=== PATIENT | male | born 1945 | race Hispanic/Latino ===

== ENCOUNTER 2023-09-21 08:26 | Observation (INO) | payer OTHER ==
--- NOTE | 2023-09-18 09:20 | RAD REPORT ---
EXAM DESCRIPTION: RAD - Chest Pa And Lat (2 Views) - 09/18/2023 9:15 am CLINICAL HISTORY: Pre op pending hernia repair COMPARISON: Chest Pa And Lat (2 Views) dated 10/14/2022 FINDINGS: Lines: None. Lungs: No evidence of edema or pneumonia. Pleural: No significant pleural effusions or pneumothorax. Cardiac: The heart size is within normal limits. Mediastinum: Within normal limits. Bones: No acute fractures. Other: None IMPRESSION: No acute cardiopulmonary disease.
[2023-09-18 09:58] LABS: Absolute Lymphocytes (CBC) 1.4 K/uL (0.7-4.9); Hematocrit 39.9 % (39.6-49.0); Lymphocytes % 24.5 % (15.3-44.8); MPV 8.1 fL (7.6-11.3); Platelets 182 thou/uL (152-406); RBC Red Blood Cell Count 4.38 M/uL (4.33-5.43)
--- NOTE | 2023-09-18 14:45 | EKG ---
Test Date: 2023-09-18 Test Time: 10:00:52 [employer]: KESHA MEASUREMENT RESULTS: Intervals: Rate: 61 DE: 150 QRSD: 138 QT: 442 QTc: 444 [place]: P: 49 DE: 150 QRS: -56 T: 66 INTERPRETIVE STATEMENTS: Normal sinus rhythm Right bundle branch block Left anterior fascicular block Bifascicular block Possible Lateral infarct, age undetermined Abnormal ECG No previous ECG available for comparison Electronically Signed On 09-18-23 14:44:23 [employer]EL[employer] ASSISTANT by Eleuterio Gallardo
[2023-09-21] MEDS ORDERED: Ringers Lactate 1,000 ML IV ONE ×2 (08:56→12:08)
[2023-09-21] MEDS ORDERED: CEFAZOLIN SODIUM 1 GM/VIAL ONE (08:56)
[2023-09-21] MEDS ORDERED: LIDOCAINE 1% MPF 5 ML VIAL ONE ×2 (09:50→10:56)
[2023-09-21] MEDS ORDERED: FENTANYL CITR 100 MCG/2 ML ONE (09:50)
[2023-09-21] MEDS ORDERED: propofoL 200 MG/20 ML VIAL IV ONE (09:50)
[2023-09-21] MEDS ORDERED: BUPIVACAINE 0.75% (PF) 2 ML SP ONE (10:08)
[2023-09-21] MEDS ORDERED: EPHEDRINE SULF 50 MG/ML VIAL ONE (11:27)
[2023-09-21] MEDS ORDERED: HYDROMORPHONE HCL 1 MG/ML INJ IV PRN (12:21)
[2023-09-21] MEDS ORDERED: CODEINE 30MG/APAP 300MG TAB PO PRN (12:21)
--- NOTE | 2023-09-21 12:21 | P.BOP ---
Preoperative diagnosis: tender large right inguinal hernia, Parkinson disease, weakness Postoperative diagnosis: same Primary procedure: Open repair of tender large right inguinal hernia with mesh Estimated blood loss: <10cc Specimen: hernia sac Findings: see dicta Anesthesia: Spinal Complications: None Transferred to: Recovery Room Condition: Good
--- OUTSIDE RECORDS SUMMARY | 2023-09-21 14:12 | XMS REPORT | Continuity of Care Document ---
:1945 Author Organization [facility] t Address [address] [place] [address] [address] [place] [address] Care Team Providers Name Role Phone No MD, Pcp Primary Care Physician Unavailable Santiago Reyes Attending Clinician Lorenza Morales PA-C Attending Clinician Unknown, Attending Attending Clinician Unavailable LORENZA MORALES Attending Clinician Unavailable Doctor Unassigned, [place] Attending Clinician Unavailable German Tobias APRN Attending Clinician Brendan Castanon Attending Clinician BRENDAN CASTANON Attending Clinician Unavailable Vaccine, [facility] Family [facility] Attending Clinician Unavailable Percy Rdoriges DO Attending Clinician PERCY RODRIGES Attending Clinician Unavailable Nurse, Jackie Pob Immunization Attending Clinician Unavailable LESTER CORONADO Attending Clinician Unavailable LUIS DANIEL NICK Attending Clinician Unavailable ANTHONY CALHOUN Attending Clinician Unavailable ANTHONY CALHOUN Attending Clinician Unavailable CESARIO GARCIA Attending Clinician Unavailable ANTHONY CALHOUN Admitting Clinician Unavailable LESTER CORONADO Admitting Clinician Unavailable Payers Payer Name Policy Type Policy Number Effective Date Expiration Date S ource MEDICARE PART A [id number] 2010 AND B 00:00:00 Problems Condition Condition Condition Status Onset Resolution Last Treating Co mments Source Name Details Category Date Date Treatment Clinician Date Parkinson' Parkinson' Disease Active U T s disease s disease 12-11 Heal th 00:00: 00 Closed Closed Disease Active Last UT anterior anterior 12-11 Assessmen Tereso lth displaced displaced 00:00: t & Plan: fracture fracture 00 Formattin of sternal of sternal g of this end of end of note right right might be clavicle clavicle different from the original. Patient has full range of motion of the shoulders with no pain. He has been discharge d from physical therapy as we will have him continue with his home exercise program and follow-up as needed. FELL FELL Diagnosis Active 2022-12-08 Mem oria Active 12-08 20:17:00 l 12/08/2022 00:00: Rikki naylor [address] Primary Primary Disease Active 2018-10 Overview: Univ ers osteoarthr osteoarthr 2-03 Formattin ity of itis of itis of 00:00: g of this [place] left knee left knee 00 note Medi devorah might be Branch different from the original. Added automatic ally from request for surgery [id number] Total knee Total knee Disease Active U nivers replacemen replacemen 6-17 it y of t status t status 00:00: [place] 00 Medical Branch Primary Primary Disease Active Overview: Univ ers osteoarthr osteoarthr 5-17 Formattin ity of itis of itis of 00:00: g of this [place] right knee right knee 00 note Me dical might be Branch different from the original. Added automatic ally from request for surgery [id number] Cerebrovas Cerebrova Problem Active 2023-08-08 Memoria cular scular 14:13:25 l accident accident Rikki n (disorder) (disorder) Active Problem 08/08/2023 [facility] Hyperlipid Hyperlipi Problem Active 2023-08-08 Memoria emia demia 14:13:25 l (disorder) (disorder) [facility] Active Problem 08/08/2023 [facility] Hypertensi Hypertens Problem Active 2023-08-08 Memoria ve david 14:13:25 l disorder, disorder, Herm melba systemic systemic arterial arterial (disorder) (disorder) Active Problem 08/08/2023 [facility] Kidney Kidney Problem Active 2023-08-08 Manuel sachin stone stone 14:13:25 l (disorder) (disorder) He rmann Active Problem 08/08/2023 [facility] Parkinsoni Problem Active 2023-08-08 M emoria sm Parkinsoni 14:13:25 l (disorder) sm Rikki n (disorder) Active Problem 08/08/2023 [facility] Tremor Tremor Problem Active 2023-08-08 Manuel sachin (finding) (finding) 14:13:25 l Active Georges Problem 08/08/2023 [facility] Fracture Fracture Problem Active 2023-08-08 Memoria of of 14:13:25 l clavicle clavicle Rikki n (disorder) (disorder) Active Problem 08/08/2023 [facility] [place] Dizziness Dizziness Problem Active 2023-08-08 Memoria (finding) (finding) 14:13:25 l Active [place] Problem 08/08/2023 [facility] [place] Allergies, Adverse Reactions, Alerts Allergy Allergy Status Severity Reaction(s) Onset Inactive Treating Comm ents Source Name Type Date Date Clinician NO KNOWN Drug Active Univers ALLERGIE Class ity of S [facility] Seasonal Seasonal Active Memori a e e l [place] Social History Social Habit Start Date Stop Date Quantity Comments Source History [facility] University o f Alcohol Binge [place] Medic al Branch Gender identity Universit y of [facility] Sexual orientation Univer sity of [facility] Exposure to 2023-02-28 2023-03-10 Not sure [facility] SARS-CoV-2 (event) 00:00:00 13:29:00 Alcohol intake 2021-05-20 2021-05-20 Current drinker Unive rsity of 00:00:00 00:00:00 of alcohol [place] Medical (finding) Branch History of Social 2020-09-17 2020-09-17 Univers ity of function 00:00:00 00:00:00 [place] [facility] History SDOH 2019-03-31 2019-03-31 2 University o f Alcohol Frequency 00:00:00 00:00:00 [facility] edical Branch History SDOH 2019-03-31 2019-03-31 1 University o f Alcohol Std Drinks 00:00:00 00:00:00 [facility] Alcohol Comment 2019-03-31 2019-03-31 Occasional Universit y of 00:00:00 00:00:00 Drinker [facility] Tobacco use and 2017-10-06 2017-10-06 Smokeless tobacco Un iversity of exposure 00:00:00 00:00:00 non-user [facility] Sex Ass[birth year] [facility] 00:00:00 00:00:00 Smoking Status Start Date Stop Date Source Tobacco smoking consumption unknown [facility] Tobacco smoking status [facility] Medications Ordered Filled Start Stop Current Ordering Indication Dosage Frequency Signature Comments Components Source Medication Medication Date Date Medication? Clinician (SIG) Name Name carbidopa-l 2022-10 Yes 1 tab, PO, Memoria evodopa 25 0-18 BID, # 60 l mg-100 mg 19:29: tab, 5 Rikki n oral tablet 00 Refill(s), Pharmacy: [facility], 157.48, cm, 08/05/23 14:06:00 CDT, Height, 68.182, kg, 08/05/23 14:06:00 CDT, Weight molnupiravi 2022-0 Yes [id number] 800mg Take 4 Univers r 200 mg 9-10 capsules ity of capsule 00:00: by mouth [place] 00 every 12 Medical (twelve) Branch hours. carbidopa-l Yes 1{tbl} Take 1 Un taylor evodopa 8-03 tablet by ity of 25-100 mg 00:00: mouth in [facility] s tablet 00 the Medical morning Branch and 1 tablet in the evening. triamterene 2022-0 Yes 1{tbl} Take 1 Un taylor -hydrochlor 7-12 tablet by ity of othiazid 00:00: mouth in [place] 37.5-25 mg 00 the Medical tablet morning. Branch atorvastati Yes 10mg Take 10 mg UT n (Lipitor) 5-23 by mouth. Hea lth 10 MG 13:51: tablet 10 tramadol 50 0 Yes 50 mg = 1 M emoria mg oral 2-21 tab, PO, l tablet 05:51: Q8H, PRN Georges 00 Pain, X 3 day, # 10 tab, 0 Refill(s), Pharmacy: 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 carbidopa-l Yes 1 tab, PO, Memoria evodopa 25 1-13 BID, # 60 l mg-100 mg 20:48: tab, 5 Rikki n oral tablet 00 Refill(s), Pharmacy: [facility] 527, 154.94, cm, 07/09/22 14:57:00 CDT, Height, 72.5, kg, 07/09/22 14:57:00 CDT, Weight carbidopa-l 0 Yes 1 tab, PO, Memoria evodopa 25 1-13 BID, # 60 l mg-100 mg 20:48: tab, 5 Rikki n oral tablet 00 Refill(s), Pharmacy: [facility] 527, 154.94, cm, 07/09/22 14:57:00 CDT, Height, 72.5, kg, 07/09/22 14:57:00 CDT, Weight carbidopa-l 1 Yes 1{tbl} Q.5D Take 1 UT evodopa 2-28 tablet by Health (Sinemet) 00:00: mouth in 25-100 MG 00 the tablet morning and 1 tablet before bedtime. carbidopa-l 2021-10 Yes 1{tbl} Q.5D Take 1 UT evodopa 2-28 tablet by Health (Sinemet) 00:00: mouth in 25-100 MG 00 the tablet morning and 1 tablet before bedtime. carbidopa-l 2021-10 Yes 1{tbl} Q.5D Take 1 UT evodopa 2-28 tablet by [facility] (Sinemet) 00:00: mouth in 25-100 MG 00 the tablet morning and 1 tablet before bedtime. carbidopa-l 2021-10 Yes 1{tbl} Take 1 Un taylor evodopa 2-28 tablet by ity of 25-100 mg 00:00: mouth. [address] pantoprazol 2021-10 Yes TAKE 1 UT e 2-27 TABLET BY [facility] (ProtoNix) 00:00: MOUTH ONCE 40 MG EC 00 DAILY ONE tablet HOUR BEFORE FOOD DAILY IN THE MORNING pantoprazol 2021-10 Yes TAKE 1 UT e 2-27 TABLET BY [facility] (ProtoNix) 00:00: MOUTH ONCE 40 MG EC 00 DAILY ONE tablet HOUR BEFORE FOOD DAILY IN THE MORNING pantoprazol 2021-10 Yes TAKE 1 UT e 2-27 TABLET BY [facility] (ProtoNix) 00:00: MOUTH ONCE 40 MG EC 00 DAILY ONE tablet HOUR BEFORE FOOD DAILY IN THE MORNING pantoprazol 2021-10 Yes TAKE 1 Univ ers e 40 mg EC 2-27 TABLET BY ity of tablet 00:00: MOUTH ONCE [place] 00 DAILY ONE Medical HOUR Branch BEFORE FOOD DAILY IN THE MORNING finasteride 2021-0 Yes 5mg QD Take 5 mg U T (Proscar) 5 9-28 by mouth 1 He alth MG tablet 00:00: (one) time 00 each day. finasteride 2021-0 Yes 5mg QD Take 5 mg U T (Proscar) 5 9-28 by mouth 1 He alth MG tablet 00:00: (one) time 00 each day. finasteride 2021-0 Yes 5mg QD Take 5 mg U T (Proscar) 5 9-28 by mouth 1 He alth MG tablet 00:00: (one) time 00 each day. finasteride 2021-0 Yes 5mg Take 1 Univ ers 5 mg tablet 9-28 tablet by ity of 00:00: mouth. [address] carbidopa-l Yes 1 tab, PO, Memoria evodopa 25 9- BID, # 60 l mg-100 mg 20:19: tab, 3 Rikki n oral tablet 00 Refill(s), Pharmacy: [facility], 154.94, cm, 07/09/22 14:57:00 CDT, Height, 72.5, kg, 07/09/22 14:57:00 CDT, Weight carbidopa-l 2021-0 Yes 1 tab, PO, Memoria evodopa 25 9-21 BID, # 60 l mg-100 mg 20:19: tab, 3 Rikki n oral tablet 00 Refill(s), Pharmacy: [facility] 527, 154.94, cm, 07/09/22 14:57:00 CDT, Height, 72.5, kg, 07/09/22 14:57:00 CDT, Weight carbidopa-l 2021-0 Yes 1 tab, PO, Memoria evodopa 25 6-21 BID, # 60 l mg-100 mg 19:03: tab, 3 Rikki n oral tablet 00 Refill(s), Pharmacy: [facility] 527, 157.48, cm, 04/08/22 13:29:00 CDT, Height, 75.455, kg, 04/08/22 13:29:00 CDT, Weight carbidopa-l 2021-0 Yes 1 tab, PO, Memoria evodopa 25 6-21 BID, # 60 l mg-100 mg 19:03: tab, 3 Rikki n oral tablet 00 Refill(s), Pharmacy: [facility] 527, 157.48, cm, 04/08/22 13:29:00 CDT, Height, 75.455, kg, 04/08/22 13:29:00 CDT, Weight Carbidopa 2020-10 Yes 1 tab, PO, Me moria 25 MG / 0-18 BID, # 60 l Levodopa 14:52: tab, 1 [place] 100 MG Oral 00 Refill(s), Tablet Pharmacy: [Sinemet [facility] 25-100] [facility] 527, 157.48, cm, 08/05/21 9:20:00 CDT, Height, 73.182, kg, 08/05/21 9:20:00 CDT, Weight Carbidopa 2020-10 Yes 1 tab, PO, Me moria 25 MG / 0-18 BID, # 60 l Levodopa 14:52: tab, 1 Georg[place] 100 MG Oral 00 Refill(s), Tablet Pharmacy: [Sinemet [facility] 25-100] [facility]acy 527, 157.48, cm, 08/05/21 9:20:00 CDT, Height, 73.182, kg, 08/05/21 9:20:00 CDT, Weight Zinc 2020-10 Yes 140 mg, Memoria 0-18 PO, Daily, l 14:35: 0 Georg[place] 00 Refill(s) D3 2020-10 Yes PO, Daily, Memoria 0-18 0 l 14:35: Refill(s) [place] 00 Zinc 2020-10 Yes 140 mg, Memoria 0-18 PO, Daily, l 14:35: 0 [place] 00 Refill(s) D3 2020-10 Yes PO, Daily, Memoria 0-18 0 l 14:35: Refill(s) [place] 00 carvedilol 2020-10 Yes 3.125 mg = M emoria 3.125 mg 0-18 1 tab, PO, l oral tablet 14:17: Q12H, # 60 [place] 00 tab, 0 Refill(s) carvedilol 2020-10 Yes 3.125 mg = M emoria 3.125 mg 0-18 1 tab, PO, l oral tablet 14:17: Q12H, # 60 [place] 00 tab, 0 Refill(s) Acetaminoph 2020-10 Yes 1 tab, PO, Memoria en 325 MG / 0-18 Q4H, PRN l tramadol 14:16: Pain, # 60 Her [place] hydrochlori 00 tab, 0 de 37.5 MG Refill(s) Oral Tablet acetaminoph 2020-10 Yes 1 tab, PO, Memoria en-tramadol 0-18 Q4H, PRN l 325 mg-37.5 14:16: Pain, # 60 [place] mg oral 00 tab, 0 tablet Refill(s) tamsulosin 2020-10 Yes 0.4 mg = 1 M emoria 0.4 mg oral 0-18 cap, PO, l capsule 14:16: Daily, # Rikki n 00 30 cap, 0 Refill(s) Acetaminoph 2020-10 Yes 1 tab, PO, Memoria en 325 MG / 0-18 Q4H, PRN l tramadol 14:16: Pain, # 60 Her [place] hydrochlori 00 tab, 0 de 37.5 MG Refill(s) Oral Tablet acetaminoph 2020-10 Yes 1 tab, PO, Memoria en-tramadol 0-18 Q4H, PRN l 325 mg-37.5 14:16: Pain, # 60 [place] mg oral 00 tab, 0 tablet Refill(s) tamsulosin 2020-10 Yes 0.4 mg = 1 M emoria 0.4 mg oral 0-18 cap, PO, l capsule 14:16: Daily, # Rikki n 00 30 cap, 0 Refill(s) carvedilol 2019-10 Yes 3.125mg Take 3.125 Univers 3.125 mg 1-30 mg by ity of tablet 13:18: mouth 2 [place] [address] ([facility]) Medical times Branch daily with meals. tamsulosin 2019-10 Yes Take by Univ ers 0.4 mg 24 1-30 mouth ity of hr capsule 13:18: daily. [place] [address] Medical Branch atorvastati 2019-10 Yes 10mg Take 10 mg Univers n 10 mg 1-30 by mouth ity of tablet 13:18: at [place] [address] bedtime. Medical Branch carvedilol 2019-10 Yes 3.125mg Take 3.125 Univers 3.125 mg 1-30 mg by ity of tablet 13:18: mouth 2 [place] [address] ([facility]) Medical times Oral daily with meals. tamsulosin 2019-10 Yes Take by Univ ers 0.4 mg 24 1-30 mouth ity of hr capsule 13:18: daily. [place] [address] Medical Branch atorvastati 2019-10 Yes 10mg Take 10 mg Univers n 10 mg 1-30 by mouth ity of tablet 13:18: at [place] [address] bedtime. Medical Branch carvedilol 2019-10 Yes 3.125mg Take 3.125 Univers 3.125 mg 1-30 mg by ity of tablet 13:18: mouth 2 [place] [address] ([facility]) Medical times Branch daily with meals. tamsulosin 2019-10 Yes Take by Univ ers 0.4 mg 24 1-30 mouth ity of hr capsule 13:18: daily. [place] [address] Medical Branch atorvastati 2019-10 Yes 10mg Take 10 mg Univers n 10 mg 1-30 by mouth ity of tablet 13:18: at [place] [address] bedtime. Medical Branch carvedilol 2019-10 Yes 3.125mg Take 3.125 Univers 3.125 mg 1-30 mg by ity of tablet 13:18: mouth 2 [place] [address] ([facility]) Medical times Branch daily with meals. tamsulosin 2019-10 Yes Take by Univ ers 0.4 mg 24 1-30 mouth ity of hr capsule 13:18: daily. [place] 19 [facility] atorvastati 2019-10 Yes 10mg Take 10 mg Univers n 10 mg 1-30 by mouth ity of tablet 13:18: at [place] [address] bedtime. Medical Branch acetaminoph 2018-10 Yes [id number] 2{tbl} Take 2 Univers en-codeine 2-23 05 tablets by ity of (TYLENOL-CO 00:00: mouth [place] DEINE #3) 00 every 4 Medical 300-30 mg (four) Branch tablet hours as needed for Pain (scale 4-6) or Pain (scale 7-10). acetaminoph 2018-10 Yes [id number] 2{tbl} Take 2 Univers en-codeine 2-23 05 tablets by ity of (TYLENOL-CO 00:00: mouth [place] DEINE #3) 00 every 4 Medical 300-30 mg (four) Branch tablet hours as needed for Pain (scale 4-6) or Pain (scale 7-10). acetaminoph 2018-10 Yes [id number] 2{tbl} Take 2 Univers en-codeine 2-23 05 tablets by ity of (TYLENOL-CO 00:00: mouth [place] DEINE #3) 00 every 4 Medical 300-30 mg (four) Branch tablet hours as needed for Pain (scale 4-6) or Pain (scale 7-10). acetaminoph 2018-10 Yes [id number] 2{tbl} Take 2 Univers en-codeine 2-23 05 tablets by ity of (TYLENOL-CO 00:00: mouth [place] DEINE #3) 00 every 4 Medical 300-30 mg (four) Branch tablet hours as needed for Pain (scale 4-6) or Pain (scale 7-10). Vital Signs Vital Name Observation Time Observation Value Comments Source Systolic blood 2023-06-28 15:01:00 143 mm[Hg] Univer sity of pressure [facility] Diastolic blood 2023-06-28 15:01:00 72 mm[Hg] [facility] Heart rate 2023-06-28 15:00:00 65 /min Universi ty of [facility] Body temperature 2023-06-28 15:00:00 36.33 Adela [facility] Respiratory rate 2023-06-28 15:00:00 17 /min [facility] Body weight 2023-06-28 15:00:00 63.05 kg Universi ty [facility] BMI 2023-06-28 15:00:00 24.62 kg/m2 [facility] Oxygen saturation in 2023-06-28 15:00:00 96 /min University Arterial blood by [facility] Pulse oximetry Branch Body height 2023-03-10 18:49:00 [facility] weight 2023-03-10 18:49:00 [facility].122 [facility] BMI 2023-03-10 18:49:00 26.46 [facility] Sy[facility]mm Hg) 2023-08-05 18:09:00 Manuel rial [place] Diastolic (mm Hg) 2023-08-05 18:09:00 Mem orial [place] Heart Rate 2023-08-05 18:09:00 [facility] [place] Height 2023-08-05 18:09:00 5 [ft_i] [facility] [place] Weight 2023-08-05 18:09:00 [facility] [place] BMI Calculated 2023-08-05 18:09:00 Memori al [place] Systolic (mm Hg) 2023-03-19 18:18:00 Manuel rial [place] Diastolic (mm Hg) 2023-03-19 18:18:00 Mem orial [place] Heart Rate 2023-03-19 18:18:00 [facility] [place] Height 2023-03-19 18:18:00 5 [ft_i] [facility] [place] Weight 2023-03-19 18:18:00 [facility] [place] BMI Calculated 2023-03-19 18:18:00 Memori al [place] Systolic (mm Hg) 2022-12-17 19:18:00 Manuel rial [place] Diastolic (mm Hg) 2022-12-17 19:18:00 Mem orial [place] Heart Rate 2022-12-17 19:18:00 [facility] [place] Height 2022-12-17 19:18:00 5 [ft_i] [facility] [place] Weight 2022-12-17 19:18:00 [facility] [place] BMI Calculated 2022-12-17 19:18:00 Memori al [place] Heart Rate 2022-12-09 05:22:00 [facility] [place] Systolic (mm Hg) 2022-12-09 05:22:00 Manuel rial [place] Diastolic (mm Hg) 2022-12-09 05:22:00 Mem orial [place] Temperature Oral (F) 2022-12-09 05:22:00 98.3 F [facility] [place] Height 2022-12-08 22:12:00 5 [ft_i] [facility] [place] BMI Calculated 2022-12-08 22:12:00 Memori al [place] Weight 2022-12-08 22:12:00 [facility] [place] Systolic (mm Hg) 2022-07-09 19:49:00 Manuel rial [place] Diastolic (mm Hg) 2022-07-09 19:49:00 Mem orial [place] Heart Rate 2022-07-09 19:49:00 [facility] [place] Respitory Rate 2022-07-09 19:49:00 Memori al [place] Height 2022-07-09 19:49:00 154.94 cm [facility] [place] Weight 2022-07-09 19:49:00 [facility] [place] BMI Calculated 2022-07-09 19:49:00 Memori al [place] Respitory Rate 2022-04-08 18:29:00 Memori al [place] Height 2022-04-08 18:29:00 157.48 cm [facility] [place] Weight 2022-04-08 18:29:00 [facility] [place] BMI Calculated 2022-04-08 18:29:00 Memori al [place] Systolic (mm Hg) 2022-04-08 18:29:00 Manuel rial [place] Diastolic (mm Hg) 2022-04-08 18:29:00 Mem orial [place] Heart Rate 2022-04-08 18:29:00 [facility] [place] Systolic (mm Hg) 2022-01-06 18:21:00 Manuel rial [place] Diastolic (mm Hg) 2022-01-06 18:21:00 Mem orial [place] Heart Rate 2022-01-06 18:21:00 [facility] [place] Respitory Rate 2022-01-06 18:21:00 Memori al [place] Height 2022-01-06 18:21:00 157.48 cm [facility] [place] Weight 2022-01-06 18:21:00 [facility] [place] BMI Calculated 2022-01-06 18:21:00 Memori al [place] Systolic (mm Hg) 2021-10-07 15:17:00 Manuel rial [place] Diastolic (mm Hg) 2021-10-07 15:17:00 Mem orial [place] Heart Rate 2021-10-07 15:17:00 [facility] [place] Respitory Rate 2021-10-07 15:17:00 Memori al [place] Height 2021-10-07 15:17:00 157.48 cm [facility] [place] Weight 2021-10-07 15:17:00 [facility] [place] BMI Calculated 2021-10-07 15:17:00 Memori al [place] Systolic (mm Hg) 2021-09-09 14:57:00 Manuel rial [place] Diastolic (mm Hg) 2021-09-09 14:57:00 Mem orial [place] Respitory Rate 2021-09-09 14:57:00 Memori al [place] Height 2021-09-09 14:57:00 157.48 cm [facility] [place] Weight 2021-09-09 14:57:00 [facility] [place] BMI Calculated 2021-09-09 14:57:00 Memori al [place] Systolic (mm Hg) 2021-08-05 14:20:00 Manuel rial [place] Diastolic (mm Hg) 2021-08-05 14:20:00 Mem orial [place] Heart Rate 2021-08-05 14:20:00 [facility] [place] Respitory Rate 2021-08-05 14:20:00 Memori al [place] Height 2021-08-05 14:20:00 157.48 cm [facility] [place] Weight 2021-08-05 14:20:00 [facility] [place] BMI Calculated 2021-08-05 14:20:00 Memori al [place] Procedures Procedure Date / Time Performed Performing Clinician Sourc e POCT SARS-COV-2 2023-06-28 15:02:00 Andrew [facility] o f [place] ANTIGEN (BINAX NOW) Medical Bran ch ASSIGNMENT OF BENEFITS 2023-06-28 14:47:29 Doctor Unassigned, No [facility] SARS-COV-2 COVID-19 2022-02-19 18:52:18 Doctor Unassigned, No Un iversity of [place] VACCINE Name Medical Branch BOOSTER,0.25ML,IM (MODERNA) SARS-COV-2 COVID-19 2021-08-12 20:22:51 Doctor Unassigned, No Un iversity of [place] VACCINE Name Medical Branch BOOSTER,0.25ML,IM (MODERNA) Knee [facility] [place] replacement<sup>1</sup > Encounters Start End Encounter Admission Attending Care Care Encounter Source Date/Time Date/Time Type Type Clinicians Facility Department ID 2023-03-06 Outpatient [facility] [id number] [place] 07:23:19 [id number] [facility] 2023-01-14 Outpatient [facility] [id number] [place] 15:55:47 [id number] [facility] 2023-01-07 Outpatient [facility] [id number] [place] 12:40:11 [id number] [facility] 2023-01-06 Outpatient [facility] [id number] [place] 09:25:03 [id number] [facility] 2022-12-18 Outpatient [facility] [id number] [place] 14:14:12 [id number] [facility] 2022-12-10 Outpatient [facility] [id number] [place] 11:21:35 [id number] [facility] 2022-12-09 Outpatient [facility] [id number] [place] 08:12:52 [id number] [facility] 2023-12-02 2023-12-02 Outpatient MHIE MHIE [id number] Memoria 13:00:00 13:00:00 12 iris Georges 2023-08-05 2023-08-06 Outpatient MHIE MNA [id number] Memoria 18:00:00 04:59:59 Neurology 11 iris Su 2023-08-05 2023-08-05 Outpatient GEN ReyesMISCHER MHMISCHER [id number] 13:00:00 23:59:59 Santiagobakari Pop 2023-08-05 2023-08-05 Outpatient MHIE MHIE [id number] Memoria 13:00:00 13:00:00 11 iris Su 2023-08-05 2023-08-05 Outpatient MHIE MHIE [id number] Memoria 13:00:00 13:00:00 11 iris Su 2023-06-28 2023-06-28 Urgent Lorenza Morales [facility] [id number] Univers 09:20:00 10:16:48 Care Unknown, Attending [facility] [id number] ity of [place] [id number] [place] DAVY?BLEA [id number] [address] MEDICAL OFFICE [facility] 2023-06-28 2023-06-28 Outpatient R ANDREW [facility] [id number] Univers 09:20:00 10:16:48 LORENZA ity [facility] 2023-06-28 2023-06-28 Orders Doctor ANITRA [id number] [facility] 00:00:00 00:00:00 Only Unassigned, [place] [id number] ity of [place] [facility] [id number] [place] [id number] [address] 2023-03-19 2023-03-20 Outpatient MHIE MNA [id number] Memoria 18:15:00 04:59:59 Neurology 10 l Jeet Su 2023-03-19 2023-03-20 Outpatient MHIE MNA [id number] Memoria 18:15:00 04:59:59 Neurology 10 l Jeet Su 2023-03-19 2023-03-19 Outpatient GEN ReyesMISCHJOHN MHMISCHER [id number] 13:15:00 23:59:59 Santiago 10 Donn 2023-03-19 2023-03-19 Outpatient MHIE MHIE [id number] Memoria 13:15:00 13:15:00 10 l Georges 2023-03-10 2023-03-10 Outpatient [facility] [id number] [place] 13:45:00 14:19:08 Health 2023-03-10 2023-03-10 Office LEILA Tobias [facility] [id number] [place] 13:45:00 14:18:58 Visit German PERDOMO 350.1.13.58 [facility] 9.2.7.2.686 [place] 0 [id number] 2023-01-07 2023-01-07 Ambulatory MHIE MNA [id number] Memoria 19:00:00 19:00:00 Pre-Reg Neurology 08 l Jeet Su 2023-01-07 2023-01-07 Ambulatory MHIE MNA [id number] Memoria 19:00:00 19:00:00 Pre-Reg Neurology 08 l Jeet Su 2023-01-07 2023-01-07 Outpatient MHIE MHIE [id number] Memoria 14:00:00 14:00:00 08 iris Su 2023-01-07 2023-01-07 Outpatient Eric MHMISCHER MHMISCHER [id number] 14:00:00 14:00:00 [place] 08 Donn 2023-01-07 2023-01-07 Outpatient [facility] [id number] [place] 13:00:00 13:43:40 [facility] 2023-01-07 2023-01-07 Office LEILA Tobias [facility] [id number] [place] 13:00:00 13:20:01 Visit German PERDOMO 350.1.13.58 [facility] 9.2.7.2.686 [place] 4 [id number] 2023-01-07 2023-01-07 Outpatient [facility] [id number] [place] 13:05:00 13:05:00 [facility] 2022-12-17 2022-12-18 Outpatient MHIE MNA [id number] Memoria 19:00:00 05:59:59 Neurology 09 l Jeet Su 2022-12-17 2022-12-18 Outpatient MHIE MNA [id number] Memoria 19:00:00 05:59:59 Neurology 09 l Jeet Su 2022-12-17 2022-12-17 Outpatient CONCHITA ReyesSCHER MHMISCHER [id number] 13:00:00 23:59:59 Santiago 09 Donn 2022-12-17 2022-12-17 Outpatient MHIE MHIE [id number] Memoria 13:00:00 13:00:00 09 iris Su 2022-12-10 2022-12-10 Office NiviaisraLEILA [facility] [id number] [place] 11:00:00 12:02:02 Visit German PERDOMO 350.1.13.58 [facility] 9.2.7.2.686 [place] [id number] 2022-12-08 2022-12-09 Emergency MHGILMAR [facility] [id number] Memoria 21:36:30 06:08:00 [place] 00 [facility] 2022-12-08 2022-12-09 Emergency MHGILMAR [facility] [id number] Memoria 21:36:30 06:08:00 [place] 00 [facility] 2022-12-08 2022-12-09 Outpatient Lg, MHPL MHPL [id number] 15:36:30 00:08:[address] 2022-12-08 2022-12-09 Emergency E LG, MHBL MHBL [id number] MHBL 15:36:00 00:08:00 [facility] 2022-10-09 2022-10-10 Outpatient MHIE MNA [id number] Memoria 21:00:00 05:59:59 Neurology 07 l [facility] 2022-10-09 2022-10-10 Outpatient MHIE MNA [id number] Memoria 21:00:00 05:59:59 Neurology 07 l [facility] 2022-10-09 2022-10-09 Outpatient CONCHITA ReyesSCHER MHMISCHER [id number] 15:00:00 23:59:59 [place] 07 Donn 2022-10-09 2022-10-09 Outpatient MHIE MHIE [id number] Memoria 15:00:00 15:00:00 07 l [place] 2022-07-09 2022-07-10 Outpatient nullFlavo MNA [id number] Memoria 19:30:00 04:59:59 r Neurology 06 l [place] 2022-07-09 2022-07-10 Outpatient nullFlavo MNA [id number] Memoria 19:30:00 04:59:59 r Neurology 06 l [facility] 2022-07-09 2022-07-09 Outpatient GEN ReyesMISCHER MHMISCHER [id number] 14:30:00 23:59:59 Santiago 06 Donn 2022-07-09 2022-07-09 Outpatient MHIE MHIE [id number] Memoria 14:30:00 14:30:00 06 iris Georges 2022-04-08 2022-04-09 Outpatient nullFlavo MNA [id number] Memoria 18:30:00 04:59:59 r Neurology 05 l Jeet Wootenann 2022-04-08 2022-04-09 Outpatient nullFlavo MNA [id number] Memoria 18:30:00 04:59:59 r Neurology 05 l [place] 2022-04-08 2022-04-08 Outpatient CHIP Reyes [facility] [id number] 13:30:00 23:59:59 Santiago Leslie Pop 2022-04-08 2022-04-08 Outpatient MHIE GILMAR [id number] Memoria 13:30:00 13:30:00 05 iris Georges 2022-02-19 2022-02-19 Imm/Inj Vaccine, Adc Family Medicine [facility] [id number] [id number] Univers 13:30:00 13:33:37 Visit Percy Rodriges 350.1.13 .10 [facility] 4.2.7.2.686 [place] PROFESSIO [id number] [place]ical [address] 2022-02-19 2022-02-19 Outpatient Corey RODRIGES [facility] [id number] Univers 13:30:00 13:30:00 PERCY rodriguez [facility] 2022-01-06 2022-01-07 Outpatient nullFlavo MNA [id number] Memoria 18:15:00 04:59:59 r Neurology 04 l Jeet uS 2022-01-06 2022-01-07 Outpatient nullFlavo MNA [id number] Memoria 18:15:00 04:59:59 r Neurology 04 l Jeet Su 2022-01-06 2022-01-06 Outpatient [facility] [id number] 13:15:00 23:59:59 Santiago Cody Pop 2022-01-06 2022-01-06 Outpatient MHIE IE [id number] Memoria 13:15:00 13:15:00 04 iris Georges 2021-10-07 2021-10-08 Outpatient nullFlavo MNA [id number] Memoria 15:30:00 05:59:59 r Neurology 03 l Jeet Su 2021-10-07 2021-10-08 Outpatient nullFlavo MNA [id number] Memoria 15:30:00 05:59:59 r Neurology 03 l Jeet Su 2021-10-07 2021-10-07 Outpatient [facility] [id number] 09:30:00 23:59:59 Santiago 03 Donn 2021-10-07 2021-10-07 Outpatient MHIE MHIE [id number] Memoria 09:30:00 09:30:00 03 iris Su 2021-09-09 2021-09-10 Outpatient nullFlavo MNA [id number] Memoria 15:00:00 05:59:59 r Neurology 02 l Jeet Su 2021-09-09 2021-09-10 Outpatient nullFlavo MNA [id number] Memoria 15:00:00 05:59:59 r Neurology 02 iris Su 2021-09-09 2021-09-09 [id number] 09:00:00 23:59:59 Santiago 02 Donn 2021-09-09 2021-09-09 Outpatient MHIE MHIE [id number] Memoria 09:00:00 09:00:00 02 iris Su 2021-08-12 2021-08-12 Outpatient Corey RODRIGES [facility] [id number] Univers 15:20:00 15:20:00 PERCY rodriguez [facility] 2021-08-12 2021-08-12 Imm/Inj Nurse, Adc Pob Immunization [facility] 1.2.840.114 [id number] Univers 15:16:53 15:17:35 [facility].1.13 .[facility] 4.2.7.2.686 Romain Whalen [id number] [place] dic[address] 2021-08-09 2021-08-09 Ambulatory nullFlavo MNA [id number] Memoria 14:00:00 14:00:00 Pre-Reg r Neurology 00 l Jeet Su 2021-08-09 2021-08-09 Ambulatory nullFlavo MNA [id number] Memoria 14:00:00 14:00:00 Pre-Reg r Neurology 00 l Jeet Su 2021-08-09 2021-08-09 Outpatient GEN ReyesMISCHER MISCHER [id number] 09:00:00 09:00:00 Santiago 00 Donn 2021-08-05 2021-08-06 Outpatient nullFlavo MNA [id number] Memoria 14:00:00 04:59:59 r Neurology 01 l Jeet Su 2021-08-05 2021-08-06 Outpatient nullFlavo MNA [id number] Memoria 14:00:00 04:59:59 r Neurology 01 l Jeet Su 2021-08-05 2021-08-05 Outpatient GEN ReyesMISCHER MISCHER [id number] 09:00:00 23:59:59 Santiago 01 Donn 2021-08-05 2021-08-05 Outpatient MHIE MHIE [id number] Memoria 09:00:00 09:00:00 01 iris Su 2021-07-29 2021-07-29 Outpatient MHIE MHIE [id number] Memoria 14:00:00 14:00:00 00 iris Su 2021-05-20 2021-05-20 Outpatient Corey CORONADO [facility] [id number] Univers 14:15:00 14:15:00 LESTER [facility] 2020-11-26 2020-11-26 Outpatient Corey NICK [facility] [id number] Univers 13:10:00 13:10:00 LUIS DANIEL [facility] 2020-10-29 2020-10-29 Outpatient Corey NICK [facility] [id number] Univers 14:10:00 14:10:00 LUIS DANIEL [facility] 2020-10-23 2020-10-23 Outpatient ANTHONY MEDEL [facility] [id number] Univers 16:20:00 16:20:00 ANTHONY CALHOUN harinder [facility] 2020-10-18 2020-10-18 Outpatient ANTHONY MEDEL [facility] [id number] Univers 13:38:14 23:59:00 LJ, ANTHONY [facility] 2020-09-17 2020-09-17 Outpatient ANTHONY MEDEL [facility] [id number] Univers 13:00:00 13:00:00 ANTHONY CALHOUN [facility] 2019-09-26 2019-09-27 Outpatient Corey CORONADO [facility] SOR [id number] Univers 06:07:00 14:55:00 LESTER [facility] 2019-09-19 2019-09-19 Outpatient RADHA [facility] [id number] Univers 15:24:33 23:59:00 CESARIO [facility] Results Test Description Test Time Test Comments Results Result Comments Source POCT SARS-COV-2 ANTIGEN (BINAX NOW) 2023-06-28 15:02:00 Test Item Value Reference Range Interpretation Comme nts POCT SARS-COV-2 ANTIGEN (test code = 81345-6) Positive Not Dete cted A On board controls acceptable with C Line (test code = 3574) Yes Lab Interpretation (test code = 93443-0) [facility] 04:49:41 Test Item Value Reference Range Interpretation Comments RADRPT (test code = Radiation Dose CTDIVOL = RADRPT) 0 (mGy): DLP = 289 (mGy-cm)PROCEDURE INFORMATION: Exam: CT Chest Without Contrast; Diagnostic Exam date and time: 12/08/2022 8:59 PM Age: 77 years old Clinical indication: Injury or trauma; Fall; Additional info: /fall, anterior chest pain TECHNIQUE: Imaging protocol: Diagnostic computed tomography of the chest without contrast. Radiation optimization: All CT scans at this facility use at least one of these dose optimization techniques: automated exposure control; mA and/or kV adjustment per patient size (includes targeted exams where dose is matched to clinical indication); or iterative reconstruction. Other protocol: This patient has received 2 known CTs and 0 known cardiac nuclear medicine studies in the 12 months prior to the current study. COMPARISON: CLAVICLE DX, RIGHT 12/08/2022 4:52 PM RADIATION DOSE METRICS: Total DLP (mGy-cm): 289 FINDINGS: Lungs: Respiratory motion artifact limits lung parenchymal evaluation. No consolidation. No masses. Pleural spaces: Unremarkable. No pneumothorax. No pleural effusion. Heart: Unremarkable. No cardiomegaly. No pericardial effusion. Lymph nodes: Unremarkable. No enlarged lymph nodes. Vasculature: Unremarkable. No aortic aneurysm. Bones/joints: Medial right clavicle shows cortical displacement. Soft tissues: Unremarkable. IMPRESSION: Medial right clavicular fracture. Ayaz Kramer MD On 12/08/2022 22:48:48; [id number] [facility] ChildrenWnoaykkLBAEKH0172-54-14 04:49:41 Test Item Value Reference Range Interpretation Comments RADRPT (test code = Radiation Dose CTDIVOL = RADRPT) 0 (mGy): DLP = 289 (mGy-cm)PROCEDURE INFORMATION: Exam: CT Chest Without Contrast; Diagnostic Exam date and time: 12/08/2022 8:59 PM Age: 77 years old Clinical indication: Injury or trauma; Fall; Additional info: /fall, anterior chest pain TECHNIQUE: Imaging protocol: Diagnostic computed tomography of the chest without contrast. Radiation optimization: All CT scans at this facility use at least one of these dose optimization techniques: automated exposure control; mA and/or kV adjustment per patient size (includes targeted exams where dose is matched to clinical indication); or iterative reconstruction. Other protocol: This patient has received 2 known CTs and 0 known cardiac nuclear medicine studies in the 12 months prior to the current study. COMPARISON: CLAVICLE DX, RIGHT 12/08/2022 4:52 PM RADIATION DOSE METRICS: Total DLP (mGy-cm): 289 FINDINGS: Lungs: Respiratory motion artifact limits lung parenchymal evaluation. No consolidation. No masses. Pleural spaces: Unremarkable. No pneumothorax. No pleural effusion. Heart: Unremarkable. No cardiomegaly. No pericardial effusion. Lymph nodes: Unremarkable. No enlarged lymph nodes. Vasculature: Unremarkable. No aortic aneurysm. Bones/joints: Medial right clavicle shows cortical displacement. Soft tissues: Unremarkable. IMPRESSION: Medial right clavicular fracture. Ayaz Kramer MD On 12/08/2022 22:48:48; [id number] [facility] CenterIhjhwsgQWSEFT1601-66-65 04:38:10 Test Item Value Reference Range Interpretation Comments RADRPT (test code = Radiation Dose CTDIVOL = 0 RADRPT) (mGy): DLP = 116.7 (mGy-cm)PROCEDURE INFORMATION: Exam: CTA Neck With Contrast Exam date and time: 12/08/2022 8:59 PM Age: 77 years old Clinical indication: Injury or trauma; Fall; Additional info: /fall, swelling to lower right neck at insertion of scm TECHNIQUE: Imaging protocol: Computed tomographic angiography of the neck with contrast. 3D rendering (Not supervised by radiologist): MIP and/or 3D reconstructed images were created by the technologist. Radiation optimization: All CT scans at this facility use at least one of these dose optimization techniques: automated exposure control; mA and/or kV adjustment per patient size (includes targeted exams where dose is matched to clinical indication); or iterative reconstruction. Contrast material: OMNI 350; Contrast volume: 85 ml; Contrast route: INTRAVENOUS (IV); Other protocol: This patient has received 2 known CTs and 0 known cardiac nuclear medicine studies in the 12 months prior to the current study. COMPARISON: CLAVICLE DX, RIGHT 12/08/2022 4:52 PM RADIATION DOSE METRICS: Total DLP (mGy-cm): 116.7 FINDINGS: Right common carotid artery: No stenosis. No dissection or occlusion. Right internal carotid artery: No stenosis of the extracranial segment. No dissection or occlusion. Right external carotid artery: No occlusion or stenosis of the origin. Left common carotid artery: No stenosis. No dissection or occlusion. Left internal carotid artery: No stenosis of the extracranial segment. No dissection or occlusion. Left external carotid artery: No occlusion or stenosis of the origin. Right vertebral artery: Tortuous proximally. No stenosis. No dissection or occlusion. Left vertebral artery: Tortuous proximally. No stenosis. No dissection or occlusion. Soft tissues: Soft tissue swelling and soft tissue hemorrhage in the right lower neck and periclavicular region. Bones/joints: Impacted mildly displaced comminuted fracture of the medial right clavicle. IMPRESSION: 1. No vascular injury. No stenosis or significant occlusion. 2. Comminuted impacted fracture of the medial right clavicle. Surrounding soft tissue swelling and soft tissue hemorrhage in the right lower neck and periclavicular region. No definitive contrast extravasation seen.REFERENCES: NASCET CRITERIA. The degree of stenosis in the cervical segment of the internal carotid artery is based on NASCET criteria. Normal is no stenosis. Mild is less than 50% stenosis. Moderate is 50-69% stenosis. Severe is 70% to 99% stenosis. Total occlusion is no detectable patent lumen. Bryan Van MD On 12/08/2022 22:36:46; [id number] [facility]AmtnldaXECNMR1134-57-05 04:38:10 Test Item Value Reference Range Interpretation Comments RADRPT (test code = Radiation Dose CTDIVOL = 0 RADRPT) (mGy): DLP = 116.7 (mGy-cm)PROCEDURE INFORMATION: Exam: CTA Neck With Contrast Exam date and time: 12/08/2022 8:59 PM Age: 77 years old Clinical indication: Injury or trauma; Fall; Additional info: /fall, swelling to lower right neck at insertion of scm TECHNIQUE: Imaging protocol: Computed tomographic angiography of the neck with contrast. 3D rendering (Not supervised by radiologist): MIP and/or 3D reconstructed images were created by the technologist. Radiation optimization: All CT scans at this facility use at least one of these dose optimization techniques: automated exposure control; mA and/or kV adjustment per patient size (includes targeted exams where dose is matched to clinical indication); or iterative reconstruction. Contrast material: OMNI 350; Contrast volume: 85 ml; Contrast route: INTRAVENOUS (IV); Other protocol: This patient has received 2 known CTs and 0 known cardiac nuclear medicine studies in the 12 months prior to the current study. COMPARISON: CLAVICLE DX, RIGHT 12/08/2022 4:52 PM RADIATION DOSE METRICS: Total DLP (mGy-cm): 116.7 FINDINGS: Right common carotid artery: No stenosis. No dissection or occlusion. Right internal carotid artery: No stenosis of the extracranial segment. No dissection or occlusion. Right external carotid artery: No occlusion or stenosis of the origin. Left common carotid artery: No stenosis. No dissection or occlusion. Left internal carotid artery: No stenosis of the extracranial segment. No dissection or occlusion. Left external carotid artery: No occlusion or stenosis of the origin. Right vertebral artery: Tortuous proximally. No stenosis. No dissection or occlusion. Left vertebral artery: Tortuous proximally. No stenosis. No dissection or occlusion. Soft tissues: Soft tissue swelling and soft tissue hemorrhage in the right lower neck and periclavicular region. Bones/joints: Impacted mildly displaced comminuted fracture of the medial right clavicle. IMPRESSION: 1. No vascular injury. No stenosis or significant occlusion. 2. Comminuted impacted fracture of the medial right clavicle. Surrounding soft tissue swelling and soft tissue hemorrhage in the right lower neck and periclavicular region. No definitive contrast extravasation seen.REFERENCES: NASCET CRITERIA. The degree of stenosis in the cervical segment of the internal carotid artery is based on NASCET criteria. Normal is no stenosis. Mild is less than 50% stenosis. Moderate is 50-69% stenosis. Severe is 70% to 99% stenosis. Total occlusion is no detectable patent lumen. Bryan Van MD On 12/08/2022 22:36:46; [id number] [facility] SoutheastMamczynRIVFJZ1917-99-18 04:03:27 Test Item Value Reference Range Interpretation Comments RADRPT (test code Radiation Dose CTDIVOL = 0 = RADRPT) (mGy): DLP = 1061.5 (mGy-cm)PROCEDURE INFORMATION: Exam: CT Head Without Contrast Exam date and time: 12/08/2022 8:59 PM Age: 77 years old Clinical indication: Injury or trauma; Fall; Additional info: /fall, headache TECHNIQUE: Imaging protocol: Computed tomography of the head without contrast. Radiation optimization: All CT scans at this facility use at least one of these dose optimization techniques: automated exposure control; mA and/or kV adjustment per patient size (includes targeted exams where dose is matched to clinical indication); or iterative reconstruction. Other protocol: This patient has received 2 known CTs and 0 known cardiac nuclear medicine studies in the 12 months prior to the current study. COMPARISON: No relevant prior studies available. RADIATION DOSE METRICS: Total DLP (mGy-cm): 1061.5 FINDINGS: Brain: Periventricular and subcortical hypodensities are noted, consistent with sequelae of chronic microvascular ischemia. Diffuse cerebral atrophy is noted, appropiate for age. Intracranial vascular calcifications are noted. No acute intracranial hemorrhage is seen. Cerebral ventricles: Ex vacuo dilation of the ventricular system is noted. Paranasal sinuses: Visualized sinuses are unremarkable. No fluid levels. Mastoid air cells: Visualized mastoid air cells are well aerated. Bones/joints: Unremarkable. No acute fracture. Soft tissues: Unremarkable. IMPRESSION: 1. 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 2. No acute intracranial abnormalities. Tanya Geronimo MD On 12/08/2022 22:02:44; [id number] [facility] SoutheastHxvvspaXATSND6919-68-31 04:03:27 Test Item Value Reference Range Interpretation Comments RADRPT (test code Radiation Dose CTDIVOL = 0 = RADRPT) (mGy): DLP = 1061.5 (mGy-cm)PROCEDURE INFORMATION: Exam: CT Head Without Contrast Exam date and time: 12/08/2022 8:59 PM Age: 77 years old Clinical indication: Injury or trauma; Fall; Additional info: /fall, headache TECHNIQUE: Imaging protocol: Computed tomography of the head without contrast. Radiation optimization: All CT scans at this facility use at least one of these dose optimization techniques: automated exposure control; mA and/or kV adjustment per patient size (includes targeted exams where dose is matched to clinical indication); or iterative reconstruction. Other protocol: This patient has received 2 known CTs and 0 known cardiac nuclear medicine studies in the 12 months prior to the current study. COMPARISON: No relevant prior studies available. RADIATION DOSE METRICS: Total DLP (mGy-cm): 1061.5 FINDINGS: Brain: Periventricular and subcortical hypodensities are noted, consistent with sequelae of chronic microvascular ischemia. Diffuse cerebral atrophy is noted, appropiate for age. Intracranial vascular calcifications are noted. No acute intracranial hemorrhage is seen. Cerebral ventricles: Ex vacuo dilation of the ventricular system is noted. Paranasal sinuses: Visualized sinuses are unremarkable. No fluid levels. Mastoid air cells: Visualized mastoid air cells are well aerated. Bones/joints: Unremarkable. No acute fracture. Soft tissues: Unremarkable. IMPRESSION: 1. 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 2. No acute intracranial abnormalities. Tanya Geronimo MD On 12/08/2022 22:02:44; [id number] [facility]CyxkjfjNMAXSXTJO2758-04-35 02:27:00 Test Item Value Reference Range Interpretation Comments Glucose Lvl (test code = Glucose Lvl) 96 70-99 [facility] DallasGhfarfvQYJKVGYNR5985-00-77 02:27:00 Test Item Value Reference Range Interpretation Comments BUN (test code = BUN) 20 7-22 [facility] DallasSwmyjxkWHGPQQZZH5982-34-48 02:27:00 Test Item Value Reference Range Interpretation Comments Creatinine Lvl (test code = Creatinine 0.86 0.50-1.40 Lvl) [facility] DallasNnlvslcPEPAYWPNW1638-09-80 02:27:00 Test Item Value Reference Range Interpretation Comments Sodium Lvl (test code = Sodium Lvl) 141 135-145 [place] 350713-02-21 02:27:00 Test Item Value Reference Range Interpretation Comments Potassium Lvl (test code = Potassium 4.3 3.5-5.1 Lvl) [place] 350713-02-21 02:27:00 Test Item Value Reference Range Interpretation Comments Chloride Lvl (test code = Chloride Lvl) 107 95-109 [place] 350713-02-21 02:27:00 Test Item Value Reference Range Interpretation Comments CO2 (test code = CO2) 27 24-32 [place] 38300-02-21 02:27:00 Test Item Value Reference Range Interpretation Comments Calcium Lvl (test code = Calcium Lvl) 9.0 8.5-10.5 [place] 350713-02-21 02:27:00 Test Item Value Reference Range Interpretation Comments AGAP (test code = AGAP) 11.3 10.0-20.0 [place] 350713-02-21 02:27:00 Test Item Value Reference Range Interpretation Comments eGFR (test code = eGFR) 89 [place] [id number] 02:27:00 Test Item Value Reference Range Interpretation Comments WBC (test code = WBC) 9.7 3.7-10.4 [place] [address]36-02-21 02:27:00 Test Item Value Reference Range Interpretation Comments RBC (test code = RBC) 4.55 4.70-6.10 [place] [id number] 02:27:00 Test Item Value Reference Range Interpretation Comments Hgb (test code = Hgb) 14.2 14.0-18.0 [place] [address]18[address]-02-21 02:27:00 Test Item Value Reference Range Interpretation Comments Hct (test code = Hct) 42.0 42.0-54.0 [place] [address]-02-21 02:27:00 Test Item Value Reference Range Interpretation Comments MCV (test code = MCV) 92.2 80.0-94.0 [place] [address]-02-21 02:27:00 Test Item Value Reference Range Interpretation Comments MCH (test code = MCH) 31.1 pg 27.0-31.0 [place] [address]18[address]-02-21 02:27:00 Test Item Value Reference Range Interpretation Comments MCHC (test code = MCHC) 33.8 32.0-36.0 [place] [id number] 02:27:00 Test Item Value Reference Range Interpretation Comments RDW (test code = RDW) 13.2 11.5-14.5 [place] [address]-02-21 02:27:00 Test Item Value Reference Range Interpretation Comments Platelet (test code = Platelet) 197 133-450 [place] 671293-02-21 02:27:00 Test Item Value Reference Range Interpretation Comments MPV (test code = MPV) 8.0 7.4-10.4 [place] [address]-02-21 02:27:00 Test Item Value Reference Range Interpretation Comments Segs (test code = Segs) 84.9 45.0-75.0 [place] [address]-02-21 02:27:00 Test Item Value Reference Range Interpretation Comments Lymphocytes (test code = Lymphocytes) 9.0 20.0-40.0 [place] [address]-02-21 02:27:00 Test Item Value Reference Range Interpretation Comments Monocytes (test code = Monocytes) 5.7 2.0-12.0 [place] [id number] 02:27:00 Test Item Value Reference Range Interpretation Comments Eosinophils (test code = 0.1 See_Comment [A utomated message] The Eosinophils) system which ge nerated this result tra nsmitted reference range : <=4.0. The reference r lizabeth was not used to int erpret this result as normal/abnormal . [facility]duargaBDYVD[facility]KOSE8830[facility]30-[facility] 02:27:00 Test Item Value Reference Range Interpretation Comments Basophils (test code = 0.3 See_Comment [Aut omated message] The Basophils) system which ge nerated this result tra nsmitted reference range : <=1.0. The reference r lizabeth was not used to int erpret this result as normal/abnormal . [place] [id number] 02:27:00 Test Item Value Reference Range Interpretation Comments Neutrophils # (test code = Neutrophils 8.3 1.5-8.1 #) [place] 671293-02-21 02:27:00 Test Item Value Reference Range Interpretation Comments Lymphocytes # (test code = Lymphocytes 0.9 1.0-5.5 #) [facility]bukqsyEKDZMWXJDK1913-79-61 02:27:00 Test Item Value Reference Range Interpretation Comments Monocytes # (test code 0.6 See_Comment [Aut omated message] The = Monocytes #) system which generated this result tra nsmitted reference range : <=0.8. The reference r lizabeth was not used to int erpret this result as normal/abnormal . [place] 350713-02-21 02:27:00 Test Item Value Reference Range Interpretation Comments Glucose Lvl (test code = Glucose Lvl) 96 70-99 [place] 350713-02-21 02:27:00 Test Item Value Reference Range Interpretation Comments BUN (test code = BUN) 20 7-22 [place] 350713-02-21 02:27:00 Test Item Value Reference Range Interpretation Comments Creatinine Lvl (test code = Creatinine 0.86 0.50-1.40 Lvl) [facility]Q1833[facility]-29 02:27:00 Test Item Value Reference Range Interpretation Comments Sodium Lvl (test code = Sodium Lvl) 141 135-145 [facility] DallasAdoxkztAZUYCJQII8746-93-02 02:27:00 Test Item Value Reference Range Interpretation Comments Potassium Lvl (test code = Potassium 4.3 3.5-5.1 Lvl) [facility] DallasPhltkzhGLLAJHKFW7768-54-86 02:27:00 Test Item Value Reference Range Interpretation Comments Chloride Lvl (test code = Chloride Lvl) 107 95-109 [place] 350713-02-21 02:27:00 Test Item Value Reference Range Interpretation Comments CO2 (test code = CO2) 27 24-32 [place] 350713-02-21 02:27:00 Test Item Value Reference Range Interpretation Comments Calcium Lvl (test code = Calcium Lvl) 9.0 8.5-10.5 [place] 350713-02-21 02:27:00 Test Item Value Reference Range Interpretation Comments AGAP (test code = AGAP) 11.3 10.0-20.0 [place] 350713-02-21 02:27:00 Test Item Value Reference Range Interpretation Comments eGFR (test code = eGFR) 89 [place] 671293-02-21 02:27:00 Test Item Value Reference Range Interpretation Comments WBC (test code = WBC) 9.7 3.7-10.4 [place] [address]-02-21 02:27:00 Test Item Value Reference Range Interpretation Comments RBC (test code = RBC) 4.55 4.70-6.10 [place] [address]-02-21 02:27:00 Test Item Value Reference Range Interpretation Comments Hgb (test code = Hgb) 14.2 14.0-18.0 [place] [address]-02-21 02:27:00 Test Item Value Reference Range Interpretation Comments Hct (test code = Hct) 42.0 42.0-54.0 [place] [address]-02-21 02:27:00 Test Item Value Reference Range Interpretation Comments MCV (test code = MCV) 92.2 80.0-94.0 [place] [address]-02-21 02:27:00 Test Item Value Reference Range Interpretation Comments MCH (test code = MCH) 31.1 pg 27.0-31.0 [place] [address]-02-21 02:27:00 Test Item Value Reference Range Interpretation Comments MCHC (test code = MCHC) 33.8 32.0-36.0 [place] [address]-02-21 02:27:00 Test Item Value Reference Range Interpretation Comments RDW (test code = RDW) 13.2 11.5-14.5 [place] [address]-02-21 02:27:00 Test Item Value Reference Range Interpretation Comments Platelet (test code = Platelet) 197 133-450 [place] 671293-02-21 02:27:00 Test Item Value Reference Range Interpretation Comments MPV (test code = MPV) 8.0 7.4-10.4 [place] [address]-02-21 02:27:00 Test Item Value Reference Range Interpretation Comments Segs (test code = Segs) 84.9 45.0-75.0 [place] [address]-02-21 02:27:00 Test Item Value Reference Range Interpretation Comments Lymphocytes (test code = Lymphocytes) 9.0 20.0-40.0 [place] [address]-02-21 02:27:00 Test Item Value Reference Range Interpretation Comments Monocytes (test code = Monocytes) 5.7 2.0-12.0 [place] [address]-02-21 02:27:00 Test Item Value Reference Range Interpretation Comments Eosinophils (test code = Eosinophils) 0.1 <=4.0 [place] [address]-02-21 02:27:00 Test Item Value Reference Range Interpretation Comments Basophils (test code = Basophils) 0.3 <=1.0 [place] [address]-02-21 02:27:00 Test Item Value Reference Range Interpretation Comments Neutrophils # (test code = Neutrophils 8.3 1.5-8.1 #) [place] [address]-02-21 02:27:00 Test Item Value Reference Range Interpretation Comments Lymphocytes # (test code = Lymphocytes 0.9 1.0-5.5 #) [place] [address]-02-21 02:27:00 Test Item Value Reference Range Interpretation Comments Monocytes # (test code = Monocytes #) 0.6 <=0.8 [place] 486383-02-21 00:57:04 Test Item Value Reference Range Interpretation Comments RADRPT (test code PROCEDURE INFORMATION: Exam: = RADRPT) XR Right Clavicle, Complete Exam date and time: 12/08/2022 4:52 PM Age: 77 years old Clinical indication: /pain post fall TECHNIQUE: Imaging protocol: Radiologic exam of the Right clavicle. Complete exam. Views: Any number of views. AP and AP Cephalic Angulation 2 views COMPARISON: No relevant prior studies available. FINDINGS: Bones/joints: There is normal alignment without fractures or dislocations. The sternoclavicular articulation is unremarkable. Mild acromioclavicular degenerative changes. The limited incompletely assessed glenohumeral joint appears unremarkable. Soft tissues: No radiopaque foreign body. Notes: If there is further concern can consider additional views or 7 day followup. IMPRESSION: No acute findings. Daniel Holden MD On 12/08/2022 18:56:26; [id number] [place] 486383-02-21 00:57:04 Test Item Value Reference Range Interpretation Comments RADRPT (test code PROCEDURE INFORMATION: Exam: = RADRPT) XR Right Clavicle, Complete Exam date and time: 12/08/2022 4:52 PM Age: 77 years old Clinical indication: /pain post fall TECHNIQUE: Imaging protocol: Radiologic exam of the Right clavicle. Complete exam. Views: Any number of views. AP and AP Cephalic Angulation 2 views COMPARISON: No relevant prior studies available. FINDINGS: Bones/joints: There is normal alignment without fractures or dislocations. The sternoclavicular articulation is unremarkable. Mild acromioclavicular degenerative changes. The limited incompletely assessed glenohumeral joint appears unremarkable. Soft tissues: No radiopaque foreign body. Notes: If there is further concern can consider additional views or 7 day followup. IMPRESSION: No acute findings. Daniel Holden MD On 12/08/2022 18:56:26; [id number] [facility]UbwjtkkUQFGFE8097-98-97 00:55:47 Test Item Value Reference Range Interpretation Comments RADRPT (test code = PROCEDURE INFORMATION: RADRPT) Exam: XR Right Ankle Exam date and time: 12/08/2022 4:52 PM Age: 77 years old Clinical indication: /pain post fall TECHNIQUE: Imaging protocol: Radiologic exam of the Right ankle. Views: 3 or more views. AP Oblique Lateral COMPARISON: No relevant prior studies available. FINDINGS: Bones/joints: There is normal alignment without fractures or dislocations. The tibiotalar joint and talar dome are unremarkable. The subtalar joint is unremarkable. The mortise is normal. The distal tibia-fibular alignment is unremarkable. There is no ankle joint effusion. Soft tissues: There is mild lateral soft tissue swelling. There are no radiopaque foreign bodies. Notes: If there is further concern, recommend follow-up radiographs or MRI for complete assessment. IMPRESSION: No fracture or dislocation Jyotsna Bell MD On 12/08/2022 18:54:54; [id number] [facility] SoutheastQaivskuJIGJVM2938-15-58 00:55:47 Test Item Value Reference Range Interpretation Comments RADRPT (test code = PROCEDURE INFORMATION: RADRPT) Exam: XR Right Ankle Exam date and time: 12/08/2022 4:52 PM Age: 77 years old Clinical indication: /pain post fall TECHNIQUE: Imaging protocol: Radiologic exam of the Right ankle. Views: 3 or more views. AP Oblique Lateral COMPARISON: No relevant prior studies available. FINDINGS: Bones/joints: There is normal alignment without fractures or dislocations. The tibiotalar joint and talar dome are unremarkable. The subtalar joint is unremarkable. The mortise is normal. The distal tibia-fibular alignment is unremarkable. There is no ankle joint effusion. Soft tissues: There is mild lateral soft tissue swelling. There are no radiopaque foreign bodies. Notes: If there is further concern, recommend follow-up radiographs or MRI for complete assessment. IMPRESSION: No fracture or dislocation Jyotsna Bell MD On 12/08/2022 18:54:54; [id number] [facility] CenterRtflgnqDFDUGD5234-39-72 00:50:38 Test Item Value Reference Range Interpretation Comments RADRPT (test code PROCEDURE INFORMATION: Exam: = RADRPT) XR Right Shoulder Exam date and time: 12/08/2022 4:52 PM Age: 77 years old Clinical indication: /pain post fall TECHNIQUE: Imaging protocol: Radiologic exam of the Right shoulder. Views: 2 or more views. COMPARISON: No relevant prior studies available. FINDINGS: Bones/joints: No dislocation. No acute fracture. Moderate acromioclavicular joint arthrosis. Narrowing of the glenohumeral joint space. There is some demineralization of the bones. Soft tissues: Mild soft tissue swelling. IMPRESSION: 1. No dislocation. No acute fracture. 2. Moderate acromioclavicular joint arthrosis. Notes: If there is further concern, recommend follow-up radiographs, CT or MRI for complete assessment. MRI would be more sensitive. Anitra Treadwell MD On 12/08/2022 18:49:16; [id number] [facility] ChildrenGruipitZINMKP0971-38-68 00:50:38 Test Item Value Reference Range Interpretation Comments RADRPT (test code PROCEDURE INFORMATION: Exam: = RADRPT) XR Right Shoulder Exam date and time: 12/08/2022 4:52 PM Age: 77 years old Clinical indication: /pain post fall TECHNIQUE: Imaging protocol: Radiologic exam of the Right shoulder. Views: 2 or more views. COMPARISON: No relevant prior studies available. FINDINGS: Bones/joints: No dislocation. No acute fracture. Moderate acromioclavicular joint arthrosis. Narrowing of the glenohumeral joint space. There is some demineralization of the bones. Soft tissues: Mild soft tissue swelling. IMPRESSION: 1. No dislocation. No acute fracture. 2. Moderate acromioclavicular joint arthrosis. Notes: If there is further concern, recommend follow-up radiographs, CT or MRI for complete assessment. MRI would be more sensitive. Anitra Treadwell MD On 12/08/2022 18:49:16; [id number] [facility] ChildrenQfmbkwzOEOXCQ0665-60-21 00:06:45 Test Item Value Reference Range Interpretation Comments RADRPT (test code PROCEDURE INFORMATION: = RADRPT) Exam: XR Right Knee Exam date and time: 12/08/2022 4:52 PM Age: 77 years old Clinical indication: /pain post fall TECHNIQUE: Imaging protocol: Radiologic exam of the Right knee. Views: 3 views. COMPARISON: No relevant prior studies available. FINDINGS: Bones/joints: Right knee arthroplasty. There is some demineralization of the bones. No dislocation. No acute fracture is seen. Trace to small effusion. Soft tissues: There is some soft tissue swelling. IMPRESSION: 1. Right knee arthroplasty. The components are in their expected location. 2. No dislocation or acute fracture is seen. 3. There is some demineralization of the bones. Notes: If there is further concern, recommend follow-up radiographs, CT or MRI for complete assessment. MRI would be more sensitive. Anitra Treadwell MD On 12/08/2022 18:05:18; [id number] [facility] ChildrenUuldvvtYTXIEO0988-72-59 00:06:45 Test Item Value Reference Range Interpretation Comments RADRPT (test code PROCEDURE INFORMATION: = RADRPT) Exam: XR Right Knee Exam date and time: 12/08/2022 4:52 PM Age: 77 years old Clinical indication: /pain post fall TECHNIQUE: Imaging protocol: Radiologic exam of the Right knee. Views: 3 views. COMPARISON: No relevant prior studies available. FINDINGS: Bones/joints: Right knee arthroplasty. There is some demineralization of the bones. No dislocation. No acute fracture is seen. Trace to small effusion. Soft tissues: There is some soft tissue swelling. IMPRESSION: 1. Right knee arthroplasty. The components are in their expected location. 2. No dislocation or acute fracture is seen. 3. There is some demineralization of the bones. Notes: If there is further concern, recommend follow-up radiographs, CT or MRI for complete assessment. MRI would be more sensitive. Anitra Treadwell MD On 12/08/2022 18:05:18; [id number] [facility] Notes Date/Time Note Provider Source 2022-12-08 20:50:41 [id number]:50:41Radiation Dose [facility] CTDIVOL = 0 (mGy): DLP = 116.7 (mGy-cm)PROCEDURE INFORMATION: Exam: CTA Neck With Contrast Exam date and time: 12/08/2022 8:59 PM Age: 77 years old Clinical indication: Injury or trauma; Fall; Additional info: /fall, swelling to lower right neck at insertion of scm TECHNIQUE: Imaging protocol: Computed tomographic angiography of the neck with contrast. 3D rendering (Not supervised by radiologist): MIP and/or 3D reconstructed images were created by the technologist. Radiation optimization: All CT scans at this facility use at least one of these dose optimization techniques: automated exposure control; mA and/or kV adjustment per patient size (includes targeted exams where dose is matched to clinical indication); or iterative reconstruction. Contrast material: OMNI 350; Contrast volume: 85 ml; Contrast route: INTRAVENOUS (IV); Other protocol: This patient has received 2 known CTs and 0 known cardiac nuclear medicine studies in the 12 months prior to the current study. COMPARISON: CLAVICLE DX, RIGHT 12/08/2022 4:52 PM RADIATION DOSE METRICS: Total DLP (mGy-cm): 116.7 FINDINGS: Right common carotid artery: No stenosis. No dissection or occlusion. Right internal carotid artery: No stenosis of the extracranial segment. No dissection or occlusion. Right external carotid artery: No occlusion or stenosis of the origin. Left common carotid artery: No stenosis. No dissection or occlusion. Left internal carotid artery: No stenosis of the extracranial segment. No dissection or occlusion. Left external carotid artery: No occlusion or stenosis of the origin. Right vertebral artery: Tortuous proximally. No stenosis. No dissection or occlusion. Left vertebral artery: Tortuous proximally. No stenosis. No dissection or occlusion. Soft tissues: Soft tissue swelling and soft tissue hemorrhage in the right lower neck and periclavicular region. Bones/joints: Impacted mildly displaced comminuted fracture of the medial right clavicle. IMPRESSION: 1. No vascular injury. No stenosis or significant occlusion. 2. Comminuted impacted fracture of the medial right clavicle. Surrounding soft tissue swelling and soft tissue hemorrhage in the right lower neck and periclavicular region. No definitive contrast extravasation seen.REFERENCES: NASCET CRITERIA. The degree of stenosis in the cervical segment of the internal carotid artery is based on NASCET criteria. Normal is no stenosis. Mild is less than 50% stenosis. Moderate is 50-69% stenosis. Severe is 70% to 99% stenosis. Total occlusion is no detectable patent lumen. Bryan Van MD On 12/08/2022 22:36:46; [id number] ReportsLNDiagnostic ReportsTXTAVAvailable for patient [id number] ReportsLNMHIEMeBaylor Scott & [facility] – PlanoWrqifia0855-08-19P89:41:00 2022-12-08 20:50:41 [id number]:50:41Radiation Dose [facility] CTDIVOL = 0 (mGy): DLP = 289 (mGy-cm)PROCEDURE INFORMATION: Exam: CT Chest Without Contrast; Diagnostic Exam date and time: 12/08/2022 8:59 PM Age: 77 years old Clinical indication: Injury or trauma; Fall; Additional info: /fall, anterior chest pain TECHNIQUE: Imaging protocol: Diagnostic computed tomography of the chest without contrast. Radiation optimization: All CT scans at this facility use at least one of these dose optimization techniques: automated exposure control; mA and/or kV adjustment per patient size (includes targeted exams where dose is matched to clinical indication); or iterative reconstruction. Other protocol: This patient has received 2 known CTs and 0 known cardiac nuclear medicine studies in the 12 months prior to the current study. COMPARISON: CLAVICLE DX, RIGHT 12/08/2022 4:52 PM RADIATION DOSE METRICS: Total DLP (mGy-cm): 289 FINDINGS: Lungs: Respiratory motion artifact limits lung parenchymal evaluation. No consolidation. No masses. Pleural spaces: Unremarkable. No pneumothorax. No pleural effusion. Heart: Unremarkable. No cardiomegaly. No pericardial effusion. Lymph nodes: Unremarkable. No enlarged lymph nodes. Vasculature: Unremarkable. No aortic aneurysm. Bones/joints: Medial right clavicle shows cortical displacement. Soft tissues: Unremarkable. IMPRESSION: Medial right clavicular fracture. Ayaz Kramer MD On 12/08/2022 22:48:48; [id number] ReportsLNDiagnostic ReportsTXTAVAvailable for patient [id number] ReportsLNMHIEMeBaylor Scott & White [facility] Center – PlanoVvxobve9561-28-38Q89:52:00 2022-12-08 20:50:41 [id number]:50:41Radiation Dose [facility] CTDIVOL = 0 (mGy): DLP = 1061.5 (mGy-cm)PROCEDURE INFORMATION: Exam: CT Head Without Contrast Exam date and time: 12/08/2022 8:59 PM Age: 77 years old Clinical indication: Injury or trauma; Fall; Additional info: /fall, headache TECHNIQUE: Imaging protocol: Computed tomography of the head without contrast. Radiation optimization: All CT scans at this facility use at least one of these dose optimization techniques: automated exposure control; mA and/or kV adjustment per patient size (includes targeted exams where dose is matched to clinical indication); or iterative reconstruction. Other protocol: This patient has received 2 known CTs and 0 known cardiac nuclear medicine studies in the 12 months prior to the current study. COMPARISON: No relevant prior studies available. RADIATION DOSE METRICS: Total DLP (mGy-cm): 1061.5 FINDINGS: Brain: Periventricular and subcortical hypodensities are noted, consistent with sequelae of chronic microvascular ischemia. Diffuse cerebral atrophy is noted, appropiate for age. Intracranial vascular calcifications are noted. No acute intracranial hemorrhage is seen. Cerebral ventricles: Ex vacuo dilation of the ventricular system is noted. Paranasal sinuses: Visualized sinuses are unremarkable. No fluid levels. Mastoid air cells: Visualized mastoid air cells are well aerated. Bones/joints: Unremarkable. No acute fracture. Soft tissues: Unremarkable. IMPRESSION: 1. 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 2. No acute intracranial abnormalities. Tanya Geronimo MD On 12/08/2022 22:02:44; [id number] ReportsLNDiagnostic ReportsTXTAVAvailable for patient [id number] ReportsLNMHIEMemoMemorial Hermann Orthopedic & Spine HospitalQwshlyr7812-92-04S47:06:00 2022-12-08 17:10:00 [id number]:10:00PROCEDURE [facility] INFORMATION: Exam: XR Right Knee Exam date and time: 12/08/2022 4:52 PM Age: 77 years old Clinical indication: /pain post fall TECHNIQUE: Imaging protocol: Radiologic exam of the Right knee. Views: 3 views. COMPARISON: No relevant prior studies available. FINDINGS: Bones/joints: Right knee arthroplasty. There is some demineralization of the bones. No dislocation. No acute fracture is seen. Trace to small effusion. Soft tissues: There is some soft tissue swelling. IMPRESSION: 1. Right knee arthroplasty. The components are in their expected location. 2. No dislocation or acute fracture is seen. 3. There is some demineralization of the bones. Notes: If there is further concern, recommend follow-up radiographs, CT or MRI for complete assessment. MRI would be more sensitive. Anitra Treadwell MD On 12/08/2022 18:05:18; [id number] ReportsLNDiagnostic ReportsTXTAVAvailable for patient [id number] ReportsLNMHIEHca Houston Healthcare SoutheastYmhhcbn5622-46-10C38:10:00 2022-12-08 17:10:00 [id number]:10:00[facility] INFORMATION: Exam: XR Right Ankle Exam date and time: 12/08/2022 4:52 PM Age: 77 years old Clinical indication: /pain post fall TECHNIQUE: Imaging protocol: Radiologic exam of the Right ankle. Views: 3 or more views. AP Oblique Lateral COMPARISON: No relevant prior studies available. FINDINGS: Bones/joints: There is normal alignment without fractures or dislocations. The tibiotalar joint and talar dome are unremarkable. The subtalar joint is unremarkable. The mortise is normal. The distal tibia-fibular alignment is unremarkable. There is no ankle joint effusion. Soft tissues: There is mild lateral soft tissue swelling. There are no radiopaque foreign bodies. Notes: If there is further concern, recommend follow-up radiographs or MRI for complete assessment. IMPRESSION: No fracture or dislocation Jyotsna Bell MD On 12/08/2022 18:54:54; [id number] ReportsLNDiagnostic ReportsTXTAVAvailable for patient [id number] ReportsLNIEHca Houston Healthcare SoutheastBjbsukj9934-81-33L22:59:00 2022-12-08 17:10:00 [id number]:10:00[facility] INFORMATION: Exam: XR Right Clavicle, Complete Exam date and time: 12/08/2022 4:52 PM Age: 77 years old Clinical indication: /pain post fall TECHNIQUE: Imaging protocol: Radiologic exam of the Right clavicle. Complete exam. Views: Any number of views. AP and AP Cephalic Angulation 2 views COMPARISON: No relevant prior studies available. FINDINGS: Bones/joints: There is normal alignment without fractures or dislocations. The sternoclavicular articulation is unremarkable. Mild acromioclavicular degenerative changes. The limited incompletely assessed glenohumeral joint appears unremarkable. Soft tissues: No radiopaque foreign body. Notes: If there is further concern can consider additional views or 7 day followup. IMPRESSION: No acute findings. Daniel Holden MD On 12/08/2022 18:56:26; [id number] ReportsLNDiagnostic ReportsTXTAVAvailable for patient [id number] ReportsLNMHIEHca Houston Healthcare SoutheastAdtsiat6081-34-19D66:00:00 2022-12-08 17:10:00 [id number]:10:00[facility] INFORMATION: Exam: XR Right Shoulder Exam date and time: 12/08/2022 4:52 PM Age: 77 years old Clinical indication: /pain post fall TECHNIQUE: Imaging protocol: Radiologic exam of the Right shoulder. Views: 2 or more views. COMPARISON: No relevant prior studies available. FINDINGS: Bones/joints: No dislocation. No acute fracture. Moderate acromioclavicular joint arthrosis. Narrowing of the glenohumeral joint space. There is some demineralization of the bones. Soft tissues: Mild soft tissue swelling. IMPRESSION: 1. No dislocation. No acute fracture. 2. Moderate acromioclavicular joint arthrosis. Notes: If there is further concern, recommend follow-up radiographs, CT or MRI for complete assessment. MRI would be more sensitive. Anitra Treadwell MD On 12/08/2022 18:49:16; [id number] ReportsLNDiagnostic ReportsTXTAVAvailable for patient [id number] ReportsLNThe [facility]2023-02-20T18:53:00
[2023-09-21 16:04] VITALS: BMI 26.3
[2023-09-21] MEDS: CEFAZOLIN 1 GM in NA CHLORIDE 0.9% 50 ML IVPB SCH (17:36)
--- NOTE | 2023-09-21 18:00 | P.SSS ---
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 HE HAD HERNIA SURGERY BY DR. PARKS. I ASKED FOR SPINAL ANESTHESIA GENERAL WILL GIVE CORRECTION SEDATION TO PARKINSON PATIENTS. HE DID GREAT WITH SURGERY BUT IS CONFUSED. HE IS ABLE TO EAT. HE NEEDS HOMEHEALTH. 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 Allergies No Known Allergies Allergy (Verified 09/18/23 08:29) Home medications list reviewed: Yes Home Medications: Biotin 10 mg PO DAILY 09/18/23 Carbidopa/Levodopa [Carbidopa-Levo ER 25-100 Tab] 1 each PO BID 09/18/23 Carboxymethylcellulos/Glycerin [Refresh Relieva 0.5-0.9% Drop] 1 drop OP PRN PRN 09/18/23 Cranberry Conc/Ascorbic Acid [Cranberry Plus Vitamin C Sftgl] 1 each PO DAILY Latanoprost Ophth [Xalatan 0.005%*] 2.5 ml EACH EYE BEDTIME 09/18/23 Mitochondrial Energy Boost 1 cap PO DAILY 09/18/23 Multivitamin 1 each PO DAILY 09/18/23 Triamterene/Hydrochlorothiazid [Triamterene-Hctz 37.5-25 mg Tb] 1 each PO DAILY 09/18/23 Zinc Gluconate [Zinc] 50 mg PO DAILY 09/18/23 - Past Medical/Surgical History Has patient received pneumonia vaccine in the past: Yes Diabetic: No -: parkinsons -: HTN -: glaucoma -: BPH -: cataracts -: bilateral knee replacements - Social History Smoking Status: Never smoker Alcohol use: No CD- Drugs: No Caffeine use: Yes Place of Residence: Home Review of Systems 10-point ROS is otherwise unremarkable General: Weakness Physical Examination - Vital Signs Temperature: 97.6 F Blood Pressure: 137/74 Pulse: 84 Respirations: 18 Pulse Ox (%): 100 - Physical Exam General: Oriented x2, Acute distress, Mild distress HEENT: Atraumatic, PERRLA, Mucous membr. moist/pink, EOMI, Sclerae nonicteric Neck: Supple, 2+ carotid pulse no bruit, No LAD, Without JVD or thyroid abnormality Respiratory: Clear to auscultation bilaterally, Normal air movement Cardiovascular: Regular rate/rhythm, Normal S1 S2 Gastrointestinal: Normal bowel sounds, No tenderness Musculoskeletal: No tenderness Integumentary: No rashes Neurological: Other (SEVERE PD), Abnormal speech Lymphatics: No axilla or inguinal lymphadenopathy - Diagnosis (Problem(s)) (1) Hx of inguinal hernia surgery Current Visit: Yes Status: Acute Plan: DONE TODAY. DID WELL PT ABOVE. REFER TO HH (2) Parkinson disease Current Visit: Yes Status: Chronic Plan: SEVERE, PROGRESSIVE AND SOONER OR LATER HE WILL NEED MUCH MORE HELP. FOR NOW HH - Disposition Disposition: ROUTINE DISCHARGE
[2023-09-21 20:19] VITALS: O2SAT 99
[2023-09-22] MEDS: CEFAZOLIN 1 GM in NA CHLORIDE 0.9% 50 ML IVPB SCH ×2 (01:43→11:37)
[2023-09-22 02:50] LABS: Absolute Lymphocytes (CBC) 0.9 K/uL (0.7-4.9); Lymphocytes % 9.9 % (15.3-44.8); MCV 90.8 fL (80-100); MPV 8.1 fL (7.6-11.3); Platelets 170 thou/uL (152-406); RBC Red Blood Cell Count 4.19 M/uL (4.33-5.43)
[2023-09-22 03:02] LABS: Albumin 3.3 g/dL (3.4-5.0); Bilirubin Total 0.8 mg/dL (0.2-1.0); Potassium 3.7 mEq/L (3.5-5.1); Protein, Total 6.2 g/dL (6.4-8.2)
[2023-09-22] MEDS ORDERED: CARBIDOPA PO SCH (09:00)
[2023-09-22] MEDS ORDERED: LEVODOPA PO SCH (09:00)
--- NOTE | 2023-09-22 13:04 | P.DS ---
Admission Date: 09/21/23 Discharge Date: 09/22/23 Disposition: DC HOME/HOME HEALTH CARE Discharge Condition: FAIR Reason for Admission: WEAKNESS AFTER SURGERY Vital Signs/Physical Exam: Temp Pulse Resp BP Pulse Ox 97.2 F 73 16 139/65 99 09/22/23 08:00 09/22/23 08:00 09/22/23 08:00 09/22/23 08:00 09/22/23 08:00 General: Alert, In no apparent distress, Oriented x3 HEENT: PERRLA, EOMI Neck: Supple Respiratory: Normal air movement Cardiovascular: No edema Gastrointestinal: Soft and benign Musculoskeletal: No erythema, No tenderness Integumentary: No rashes, No breakdown Neurological: Normal speech Laboratory Data at Discharge: WBC 8.60 thou/uL (4.3-10.9) 09/22/23 01:52 Hgb 13.1 g/dL (13.6-17.9) L 09/22/23 01:52 Hct 38.0 % (39.6-49.0) L 09/22/23 01:52 Plt Count 170 thou/uL (152-406) 09/22/23 01:52 Sodium 138 mEq/L (136-145) 09/22/23 01:52 Potassium 3.7 mEq/L (3.5-5.1) 09/22/23 01:52 BUN 21 mg/dL (7-18) H 09/22/23 01:52 Creatinine 0.89 mg/dL (0.70-1.30) 09/22/23 01:52 Glucose 104 mg/dL (74-106) 09/22/23 01:52 Total Bilirubin 0.8 mg/dL (0.2-1.0) 09/22/23 01:52 AST 12 U/L (15-37) L 09/22/23 01:52 ALT 17 U/L (16-61) 09/22/23 01:52 Alkaline Phosphatase 61 U/L (45-117) 09/22/23 01:52 Home Medications: Biotin 10 mg PO DAILY 09/18/23 Carbidopa/Levodopa [Carbidopa-Levo ER 25-100 Tab] 1 each PO BID 09/18/23 Carboxymethylcellulos/Glycerin [Refresh Relieva 0.5-0.9% Drop] 1 drop OP PRN PRN 12/01/23 Cranberry Conc/Ascorbic Acid [Cranberry Plus Vitamin C Sftgl] 1 each PO DAILY 09/18/23 Latanoprost Ophth [Xalatan 0.005%*] 2.5 ml EACH EYE BEDTIME 09/18/23 Mitochondrial Energy Boost 1 cap PO DAILY 09/18/23 Multivitamin 1 each PO DAILY 09/18/23 Triamterene/Hydrochlorothiazid [Triamterene-Hctz 37.5-25 mg Tb] 1 each PO DAILY 09/18/23 Zinc Gluconate [Zinc] 50 mg PO DAILY 09/18/23 Physician Discharge Instructions: keep area dry for 24h then may remove outer dressing and shower. cold compress to inguinal area for 24h Diet: AHA Activity: No lifting more than 10 lbs Followup: Greg Lunsford MD [Primary Care Provider] - Avila Shelton MD [ACTIVE - CAN ADMIT] - 1 Week
--- NOTE | 2023-09-22 13:17 | OP ---
Date of Procedure: 09/22/2023 Surgeon: Avila Shelton MD Preoperative Diagnoses: Tender large right inguinal hernia, Parkinson's disease, weakness. Postoperative Diagnoses: Tender large right inguinal hernia, Parkinson's disease, weakness. Procedure: Open repair of tender large right inguinal hernia with mesh. Estimated Blood Loss: Less than 10 mL. Specimen: Hernia sac. Findings: The patient has large right inguinal hernia. Anesthesia: Spinal. Complications: None. Mesh: Large mesh plug and sheet. Indication: This is the case of a 78-year-old patient, who comes to us with multiple medical problem s. I received a phone call from his primary doctor. The patient himself preferred to have the proce dure done with no anesthetic and this case is between him and Anesthesia after discussing the pros an d cons of it and after also having a conversation with the primary doctor. Spinal anesthesia was maki ected in his case. He was happy. The family members are present. The family members are concerned about spinal anesthesia, about the postoperative care that day and I explained to them that depends o n how he wake up from the anesthesia, how he recover his function, then will be eventually his discha rge, so the benefits, alternatives, and risks of that fully explained of the right inguinal hernia, w hich include, but not limited to infection, bleeding, damage to adjacent structures, anesthesia compl ication, recurrence, AK, and . He also understands this may not relieve symptoms. He might nee d more than one surgical intervention. He understands we may be using mesh in that region, so mesh p ros and cons discussed with the patient. Concerning the spinal anesthetic, obviously we understand t he family concerned about general anesthetic and Parkinson. They have an association that they are v poppy firm about it and wanted general anesthetic. They preferred spinal. This may somehow also affec t his condition. There is some also risk for spinal anesthetic and then also after the surgery, we h ave to see how long to take for him to recover and if he is strong enough, to go home today. All thi s will determine his postop outcome. The patient understands they prefer the patient to stay overnig ht if he got spinal anesthetic and he cannot recover the functions immediately. I called the primary doctor. I explained the situation that we have and the possible outcomes. After discussing all yajaira t with the family and the patient, then we proceeded with surgery. Procedure In Detail: The patient was brought to the operating room and placed in supine position aft er receiving spinal anesthesia. After that, the abdomen and inguinal area were prepped and draped in usual sterile fashion. Then, we proceeded after time-out to make an incision in the right inguinal region. The incision was carried down to Berenice's fascia which was opened under direct vision. The external oblique aponeurosis was identified and opened under direct vision to connect to the superfic ial inguinal ring. Ilioinguinal nerve and iliohypogastric nerve were identified, protected behind ex ternal oblique aponeurosis. Joy was placed around the spermatic cord. Hernia sac was identified . Hernia sac was removed away from the spermatic cord structures. They were protected and the herni a sac was opened. We reduced the content. In this case, small bowel looked intact and then twisted the hernia sac and suture ligated twice with Prolene. We made sure the bowel was not involved. Then , through that same deep internal ring, we proceeded a large mesh plug, secured in place with VersaTa ck. Mesh sheet was selected and placed in the floor of the canal, securing that to the pubic tubercl e, shelving edge of inguinal ligament, transversalis fascia, and the looped tails around the spermati c cord without strangulation. After that, we make sure we secured hemostasis, removed the Boyd, b ring the ilioinguinal nerve and iliohypogastric nerve back to the inguinal canal. We reconstructed t he superficial inguinal ring with Prolene and closed the external oblique aponeurosis, make sure the nerves were not included. The Berenice's fascia was closed with 3-0 chromic and then the skin with sta ples. Sponge count and instrument counts correct. The patient tolerated the procedure well. The modesta dos santos was sent to recovery in stable condition. Right now, he still have no function of the leg. He is awake and alert. He is happy with surgery now. In the next few hours, we see that he cannot mov e and the family already say that they cannot take care of him tonight. We might have to stay overni [facility] until he recovered his function and then most likely discharge home tomorrow. I will in advance consult the renal case manager of the hospital to see what other opportunity that she can identify for a fe discharge. EDUARDO/CHAYO Voice ID: [id number] Report ID: [id number]
[2023-09-22 14:25] VITALS: BP 151/81; TEMP 98
== END 2023-09-22 15:34 | disposition home health service (06) ==
LOC: OR 08:26 → 2ND 14:05
PROVIDERS: ADMIT Surgery; ATTEND Surgery
PROC: 0YU50JZ Supplement Right Inguinal Region with Synthetic Substitute, Open Approach (ICD-10-PCS; principal; 2023-09-21 10:45)
DX: K40.90 Unilateral inguinal hernia, without obstruction or gangrene, not specified as recurrent (principal); G20.A1 Parkinson's disease without dyskinesia, without mention of fluctuations; R53.1 Weakness
CPT/HCPCS: 93005; 85025 ×2; 80048; 36415 ×2; 88302; 80053; 71046; 97116 ×2; 97161; 97530; 94010; 94760 ×2; 49505; J2704; J2001 ×2; J3010; J7120 ×2; J0690 ×4; G0379; G0378 ×2